=== PATIENT | male | born 1945 | race Caucasian/White ===

== ENCOUNTER → 2017-09-07 | Outpatient (CLI) | payer OTHER, MEDICARE | LOC: BHFA 15:30 | PROVIDERS: ATTEND Internal Medicine Cardiovascular Disease | DX: R60.9 Edema, unspecified (principal); I48.91 Unspecified atrial fibrillation ==

== ENCOUNTER 2018-07-17 07:23 | Inpatient (IN) | payer OTHER, MEDICARE ==
--- NOTE | 2018-07-05 15:50 | GHP ---
DATE OF ADMISSION: 07/17/2018 The patient will be a.m. admission for surgery on July 17, 2018. PROBLEM: Left knee arthritis. HISTORY OF PRESENT ILLNESS: The patient is a 73-year-old man admitted for a left total knee arthropl asty. He has a long history of progressive trouble with both knees. He lives in [place] part-time and [place] part-time. He has had Synvisc-One injections in his knees but it did not help. We have al so given him injections with minimal benefit. Currently, the left knee is more painful than the righ t. He complains of stiffness and soreness after sitting. He has trouble going down stairs. He comp lains that his left knee "locks up." He cannot take anti-inflammatory medication because he is antic oagulated on Eliquis for atrial fibrillation. PAST MEDICAL HISTORY: Atrial fibrillation. He had a pacemaker inserted in 2000. He has been cleare d by Dr. Scott. Dr. Scott stated that he could stop his Eliquis and did not require bridge the rapy. No history of coronary artery disease or stents, DVT, hepatitis, MRSA staph infection, sleep a pnea and bleeding problems. CURRENT MEDICATIONS: Eliquis 5 mg a day. Carvedilol 25 mg per day. Digoxin 0.25 mg per day. Lisin opril 2.5 mg per day. DRUG ALLERGIES: None. Metal allergy: None. Latex allergy: None. SOCIAL HISTORY: The patient is . He does not smoke cigarettes and occasionally drinks alcoho l. He is retired. FAMILY HISTORY: Unremarkable. PHYSICAL EXAMINATION: GENERAL APPEARANCE: He is an alert, healthy-appearing elderly man. Height 5 feet 11-1/2 inches. Weight 184 pounds. BMI 25.3. EYES: Conjunctivae and sclerae are clear. Pupil s are round and reactive. He has had bilateral cataract surgery with lens implants. MOUTH: Good or al hygiene. No loose teeth. CHEST: Clear. HEART: Regular rhythm. No murmurs. EXTREMITIES: Per tinent findings limited to his left knee. He has full extension 120 degrees of flexion. A small eff usion is present. Moderately course patellofemoral crepitation with active knee extension. His liga ments are stable. He has stasis dermatitis in the lower legs. Significant varicose veins in the rig ht leg. IMPRESSION ON ADMISSION: 1. Left knee degenerative arthritis, primarily involving the patellofemoral joint. He is prepared f or a left total knee arthroplasty. 2. Atrial fibrillation and a pacemaker. He is anticoagulated with Eliquis. 3. Chronic lower extremity venous insufficiency. PLAN: He will undergo a left total knee arthroplasty. The surgery has been described to him, includ ing the risks, complications, expectations, and recovery time. I have notified him that 10% to 15% o f people do not get a satisfactory result with a total knee replacement. I have stressed the importa nce of postoperative physical therapy. All his questions have been answered, and he consents to surg onofre. /[id number]/MODL
[~2018-07-17 07:23] MED LIST: POVIDONE-IODINE 20 ML in SODIUM CL IRRIG SOLUTION 500 ML IRR ONE; ROPIVACAINE 0.2% 80 MG, EPINEPHrine 0.2 MG, KETOROLAC TROMETHAMINE 30 MG in SYRINGE 0 ML IU ONE; TRANEXAMIC ACID 1,000 MG in NS 100 ML IV ONE; TRANEXAMIC ACID 3,000 MG in NS (SYRINGE) 50 ML IRR ONE
[2018-07-17] MEDS ORDERED: FAMOTIDINE 20 MG TAB PO ONE (07:32)
[2018-07-17] MEDS ORDERED: GABAPENTIN 300 MG CAP PO ONE (07:32)
[2018-07-17] MEDS ORDERED: ceFAZolin 2 GM/DEXTROSE 100 ML IV ONE (07:32)
[2018-07-17] MEDS ORDERED: ACETAMINOPHEN 325 MG TAB PO ONE (07:32)
[2018-07-17] MEDS ORDERED: DEXAMETHASONE 4 MG/ML VIAL IVP ONE (07:32)
[2018-07-17] MEDS ORDERED: ONDANSETRON 4 MG/2 ML VIAL IVP ONE (07:32)
[2018-07-17] MEDS ORDERED: LR 1,000 ML IV ONE (07:34)
[2018-07-17] MEDS ORDERED: ceFAZolin 1 GM/5 ML SYR ONE (08:36)
[2018-07-17] MEDS ORDERED: VANCOMYCIN 1 GM VIAL ONE (08:36)
[2018-07-17] MEDS ORDERED: TRANEXAMIC ACID 3,000 MG/50 ML BAG IRR ONE (08:36)
[2018-07-17] MEDS ORDERED: PROPOFOL/EMULSION 500 MG/50 ML BOTTLE IV ONE (08:37)
--- NOTE | 2018-07-17 08:53 | PDHPUP ---
History & Physical Update H&P update statement: This history and physical update is based on an assessment of the patient which was completed after admission or registration (within 24 hours), but prior to the surgery/procedure. H&P update: H&P reviewed & patient examined
[2018-07-17] MEDS ORDERED: BUPIVACAINE/DEXTROSE 7.5MG/ML 2 ML SPINAL AMP SP ONE (09:16)
[2018-07-17] MEDS ORDERED: LIDOCAINE 2% 5 ML SDV ONE (09:48)
[2018-07-17] MEDS ORDERED: GLYCOPYRROLATE 0.2 MG/1 ML VIAL ONE (09:49)
[2018-07-17] MEDS ORDERED: fentaNYL 100 MCG/2 ML INJ ONE (09:50)
[2018-07-17] MEDS ORDERED: ONDANSETRON 4 MG/2 ML VIAL ONE (09:52)
[2018-07-17] MEDS ORDERED: DEXAMETHASONE 4 MG/ML VIAL ONE ×2 (09:52)
[2018-07-17] MEDS ORDERED: fentaNYL 100 MCG/2 ML INJ IVP PRN (10:24)
[2018-07-17] MEDS ORDERED: METOCLOPRAMIDE 10 MG/2 ML VIAL IVP PRN ×2 (10:24→11:20)
[2018-07-17] MEDS ORDERED: MEPERIDINE 25 MG/0.5 ML AMP IVP PRN (10:24)
[2018-07-17] MEDS ORDERED: PROMETHAZINE HCL 25 MG/ML INJ IVP PRN ×2 (10:24→11:20)
[2018-07-17] MEDS ORDERED: PHENYLEPHRINE HCL 100 MCG/ML SYR IVP PRN (10:24)
[2018-07-17] MEDS ORDERED: HYDROmorphONE/DILAUDID 2 MG/ML INJ IVP PRN (10:24)
[2018-07-17] MEDS ORDERED: oxyCODONE IR 5 MG TAB PO PRN ×2 (10:24→11:20)
[2018-07-17] MEDS ORDERED: LR 500 ML IV PRN (10:24)
[2018-07-17] MEDS ORDERED: NALOXONE HCL 0.4 MG/ML INJ IVP PRN (10:24)
[2018-07-17] MEDS ORDERED: ACETAMINOPHEN 500 MG TAB PO PRN (10:24)
[2018-07-17] MEDS ORDERED: LABETALOL HCL 20 MG/4 ML INJ IVP PRN (10:24)
[2018-07-17] MEDS ORDERED: ALBUTEROL 3 ML DEYVIAL IH PRN (10:24)
--- NOTE | 2018-07-17 10:24 | PDANEPAE ---
ANE History of Present Illness left TKA for left knee pain ANE Past Medical History - Cardiovascular History Hx Hypertension: No Hx Arrhythmias: Yes Hx Chest Pain: No Hx Coronary Artery / Peripheral Vascular Disease: No Hx CHF / Valvular Disease: No Hx Palpitations: No Cardiovascular History Comment: SSS, Afib. +Pacemaker - Pulmonary History Hx COPD: No Hx Asthma/Reactive Airway Disease: No Hx Recent Upper Respiratory Infection: No Hx Oxygen in Use at Home: No Hx Sleep Apnea: No Sleep Apnea Screening Result - Last Documented: Positive - Neurologic History Hx Cerebrovascular Accident: No Hx Seizures: No Hx Dementia: No - Endocrine History Hx Diabetes: No Hypothyroid: No Hyperthyroid: No Obesity: no - Renal History Hx Renal Disorders: No - Liver History Hx Hepatic Disorders: No - Neurological & Psychiatric Hx Hx Neurological and Psychiatric Disorders: No - Cancer History Hx Cancer: No - Congenital Disorder History Hx Congenital Disorders: No - GI History GERD: no Hx Gastrointestinal Disorders: No - Other Health History Other Health History: none - Chronic Pain History Chronic Pain: Yes (right knee) - Surgical History Prior Surgeries: cataract. pacemaker ANE Review of Systems Review of systems is: negative Review of Systems: - Exercise capacity Exercise capacity: >=4 METS METS (RN): 4 METS - Pacemaker Pacemaker Type: Permanent Pacer/Defib Pacemaker Pododermatologist: [email or web address] Pacemaker Model: EVIA SR-T Pacemaker Mode: VVI-CLS Date Pacemaker Last Checked: 07/02/18 ANE Patient History - Allergies Allergies/Adverse Reactions: No Known Allergies Allergy (Verified 07/06/18 11:19) - Home Medications Home medications: home medication list seen and reviewed Home Medications: Apixaban [Eliquis] 5 mg PO BID 07/06/18 [Last Taken 07/10/18] Carvedilol [Coreg (*)] 50 mg PO BIDMEAL 07/06/18 [Last Taken 07/17/18] Digoxin [Lanoxin 250 mcg (RX)] 125 mcg PO BID 07/06/18 [Last Taken 07/17/18] Lisinopril [Zestril 2.5 mg (*)] 2.5 mg PO DAILY 07/06/18 [Last Taken 07/16/18] - NPO status NPO Status: no food or drink >8 hours NPO Since - Liquids (Date): 07/17/18 NPO Since - Liquids (Time): 06:00 NPO Since - Solids (Date): 07/16/18 NPO Since - Solids (Time): 18:00 - Anes Hx Anes Hx: no prior problems - Smoking Hx Smoking Status: Former smoker - Family Anes Hx Family Anes Hx: none Family Hx Anesthesia Complications: none ANE Labs/Vital Signs - Vital Signs Vital Signs: reviewed preoperatively; see RN documention for details Blood Pressure: 112/75 Heart Rate: 71 Respiratory Rate: 10 O2 Sat (%): 98 Height: 182.88 cm Weight: 83.461 kg ANE Physical Exam - Airway Neck exam: FROM Mallampati Score: Class 2 Mouth exam: normal dental/mouth exam - Pulmonary Pulmonary: no respiratory distress - Cardiovascular Cardiovascular: regular rate and rhythym - ASA Status ASA Status: II ANE Anesthesia Plan Anesthesia Plan: spinal Regional Anesthesia: continuous NB, adductor canal FNB
[2018-07-17] MEDS ORDERED: PROPOFOL 200 MG/20 ML VIAL ONE (10:25)
[2018-07-17] MEDS ORDERED: ROPIVACAINE HCL 150 MG/30 ML INJ ONE (11:02)
--- NOTE | 2018-07-17 11:06 | POSTOPPROG ---
Post Op Note Date of Operation: 07/17/18 Surgeon: Ciro Cervantes Coke Crane Operator: Bunny Anesthesiologist: Myriam Anesthesia: IV Sedation, Spinal Post-op Diagnosis: Left knee severe degenerative arthritis. Procedure: Left total knee arthroplasty Inf/Abcess present in the surg proc area at time of surgery?: No EBL: 50-100 (Adductor canal block in PACU with indwelling catheter.)
[2018-07-17] MEDS ORDERED: CYCLOBENZAPRINE 10 MG TAB PO PRN (11:20)
[2018-07-17] MEDS ORDERED: MAGNESIUM HYDROXIDE 30 ML UDCUP PO PRN (11:20)
[2018-07-17] MEDS ORDERED: POLYETHYLENE GLYCOL 3350 17 GM PKT PO PRN (11:20)
[2018-07-17] MEDS ORDERED: ONDANSETRON DISINTEGRATING 4 MG TAB PO PRN (11:20)
[2018-07-17] MEDS ORDERED: LACTULOSE 20 GM/30 ML UDCUP PO PRN (11:20)
[2018-07-17] MEDS ORDERED: ONDANSETRON 4 MG/2 ML VIAL IVP PRN (11:20)
[2018-07-17] MEDS ORDERED: DIPHENOXYLATE/ATROPINE LOMOTIL 1 TAB PO PRN (11:20)
[2018-07-17] MEDS ORDERED: BISACODYL 10 MG SUPP PR PRN (11:20)
[2018-07-17] MEDS ORDERED: traMADol 50 MG TAB PO PRN (11:20)
[2018-07-17] MEDS ORDERED: NS 500 ML IV PRN (11:20)
[2018-07-17] MEDS ORDERED: diphenhydrAMINE 25 MG CAP PO PRN (11:20)
[2018-07-17] MEDS ORDERED: TEMAZEPAM 15 MG CAP PO PRN (11:20)
[2018-07-17] MEDS ORDERED: PROMETHAZINE HCL 25 MG SUPPR PR PRN (11:20)
[2018-07-17] MEDS ORDERED: LR 1,000 ML IV SCH (11:30)
--- NOTE | 2018-07-17 12:00 | PDMN ---
Medical Necessity Medical necessity: [facility] S700 Total Knee Arthroplasty: L TKA, meets IP criteria for advanced age, SSS, Afib, +pacemaker, +ZAC
--- NOTE | 2018-07-17 12:29 | POSTANESTH ---
Post Anesthetic Evaluation Cardiovascular Status: Normal, Stable Respiratory Status: Normal, Stable Level of Consciousness/Mental Status: Can Participate in Eval Pain Control: Adequate, Prn Tx Ordered Nausea/Vomiting Control: Adequate, Prn Tx Ordered Complications Possibly Related to Anesthesia: None Noted
--- NOTE | 2018-07-17 12:52 | GOP ---
DATE OF OPERATION: 07/17/2018 SURGEON: Ciro Cervantes MD GARNETT MACHINE OPERATOR: Willie Marin and Zelalem Frausto. ANESTHESIA: Combination of Marcaine spinal, IV sedation, and adductor canal block. ANESTHESIOLOGIST: Michael Xavier MD. PREOPERATIVE DIAGNOSIS: Left knee severe degenerative arthritis, primarily involving the patellofemo ral joint. POSTOPERATIVE DIAGNOSIS: Left knee severe degenerative arthritis, primarily involving the patellofem oral joint. PROCEDURE PERFORMED: 07/17/2018, left total knee arthroplasty, cemented, Mckenna and Nephew Journey II , posterior stabilized. FINDINGS: DESCRIPTION OF PROCEDURE: The patient was given 2 g of IV Ancef preoperatively within 60 minutes of surgery. He received 1000 mg of IV tranexamic acid preoperatively. He was placed on the operating r oom table and given spinal anesthesia with Marcaine by Dr. Xavier. He was then placed supine and g iven IV sedation. A Bustos catheter was not used. He wore a KARLOS stocking and SCD on the nonoperative leg. His left lower extremity was prepped with ChloraPrep from the upper thigh tourniquet to the ti ps of the toes. It was draped free using sterile sheets, towels, stockinette and Ioban plastic drape . The lower leg was wrapped with compressive Coban. The leg was exsanguinated with elevation and a 6-inch compressive wrap, and the pneumatic tourniquet was inflated to 250 mmHg. The World Health Organization time-out was performed to verify the correct patient identity and the c orrect surgical side and site. The [place] time-out was also performed. The Keteraayo leg holding device was sterilely attached to the operating room table and used throughout the procedure to help position the knee. A straight midline incision was made centered on the patell a. Subcutaneous tissues were sharply divided, and hemostasis was obtained using electrocautery. A m edial subcutaneous flap was developed and the capsule and synovium were opened in a medial parapatell ar fashion. Extensive degenerative changes were present, primarily in the patellofemoral joint. He was eroded down to subchondral bone on the patella. His medial capsule and periosteum were lightly e levated off the rim of the medial tibial plateau all the way around to the posteromedial corner. The medial collateral ligament was very lightly released. In order to improve exposure, the patella was prepared first. The original thickness of the patella was measured. Peripheral osteophytes were removed. I cut a flat surface on the back of the patella. It was sized for a 38 mm round resurfacing component. I removed enough bone from the patella such that the remaining bone plus the thickness of the patellar component recreated the original thickness of the patella. The composite thickness was 26 mm. The intramedullary alignment guide system was used to set up the distal femoral cut. The distal femu r was cut in 5 degrees of valgus. Because of a slight preoperative flexion contracture, I made a +2 mm cut on the distal femur. The sizing jig was used to determine proper femoral sizing. I shifted t he size 7 jig anteriorly 1 mm in order to accommodate the size 7 without notching the anterior cortex . The 5-in-1 cutting block was applied, and the anterior and posterior condylar cuts and chamfer cut s were made. The final jig was used to remove the central portion of the distal femur to accommodate the posterior stabilized femoral component. I was careful to determine proper rotation by referjackson casillas off [place]'s line and other bony landmarks. Each cut was checked for accuracy. The femur was sized for a size 7 posterior stabilized component. Next, the tibia was prepared. The proximal tibial cut was made using the extramedullary alignment gu shailesh system. The cut was made in a few degrees of posterior slope. I was careful to achieve proper v arus valgus alignment and proper rotation. The posterior compartment was cleared of meniscal remnant s. Osteophytes were removed from the back of the femoral condyles. I checked the flexion and extens ion gaps and they were equal and rectangular. The tibia was sized for a size 6 component. With the trial components in place, I selected a 10 mm polyethylene posterior stabilized tibial insert. The adonis estrada came to full extension and flexed to 130 degrees. His collateral ligaments were stable and jesusita dimple in 90 degrees of flexion and full extension. The trial patellar button was applied, and patellar tracking was checked. Tracking was excellent without any digital pressure. 40 cc of the joint anesthetic cocktail were injected into the posterior capsule, the quadriceps tendo n and muscle areas and the subcutaneous tissues along the skin edges. The surfaces were prepared for cementing. They were carefully cleaned with the pulsating lavage irri gation and thoroughly dried. The CarboJet device was used to blow dry the cancellous surfaces. A do uble batch of high viscosity methylmethacrylate cement with 2 g of powdered vancomycin added was mixe d. While it was still in a doughy state, all 3 components were cemented in place. Excess cement was removed before it hardened. The 10 mm trial tibial insert was re-tried and was the proper thickness. The actual component was in serted and locked into place. The knee was thoroughly irrigated 1 final time with a dilute Betadine solution. The tourniquet was deflated. Total tourniquet time was 56 minutes. 50 cc of tranexamic acid solutio n was irrigated into the joint. The joint was packed with a lap and wrapped with a 6-inch Vaibhav bandag e and left in place for a couple of minutes. The vastus medialis portion of the extensor mechanism w as repaired with several interrupted [id number] #2 FiberWire sutures. The capsule and synovium were closed first with multiple interrupted [id number] 0 PDS sutures, followed by a running #2 b arbed Ethicon Stratafix PDO suture. The subcutaneous tissues were closed with a running 0 barbed Eth icon Stratafix Monoderm suture. The skin was closed with a running 3-0 barbed Ethicon Stratafix Bowman derm subcuticular suture. The skin was sealed with half-inch Steri-Strips. The wound was covered wi th a large sterile waterproof Mepilex dressing and a 6-inch compressive wrap. A long-leg KARLOS stockin g and SCD were applied followed by the cooling device. He wore a stocking and SCD on the opposite le g during the procedure. The Mediplex sacral dressing was also applied. I used a size 7 cemented Mckenna and Nephew Oxinium posterior stabilized femoral component, a size 6 ce mented tibial base plate, a 10 mm posterior stabilized tibial insert and a 38 mm cemented round all-p olyethylene resurfacing patellar component. The estimated blood loss following inflation of the tourniquet was about 100 cc. The sponge and needle count were correct on 2 occasions. He was awakened from anesthesia, transferred to his gurney, and taken to PACU in satisfactory conditi on. There were no recognized intraoperative complications. In the PACU, for additional postoperativ e pain control, Dr. Xavier performed an adductor canal block with an indwelling catheter. Willie Marin and Zelalem Frausto acted as surgical assistants. Their assistance was a medical necess ity for safe completion of the procedure. The patient does not have a primary care physician in [facility]. /[id number]/MODL
[2018-07-17] MEDS: ACETAMINOPHEN 325 MG TAB PO SCH ×2 (13:58→17:29)
[2018-07-17] MEDS: KETOROLAC 15 MG/1 ML SDV IVP SCH ×2 (13:59→17:30)
[2018-07-17] MEDS: CARVEDILOL 25 MG TAB PO SCH (17:30)
[2018-07-17] MEDS: ceFAZolin 2 GM/DEXTROSE 100 ML IV SCH (17:30)
[2018-07-17] MEDS: SENNOSIDES/DOCUSATE SODIUM TAB PO SCH (20:19)
[2018-07-17] MEDS: DIGOXIN 250 MCG TAB PO SCH (20:19)
[2018-07-17] MEDS: FAMOTIDINE 20 MG TAB PO SCH (20:19)
[2018-07-18] MEDS: ACETAMINOPHEN 325 MG TAB PO SCH ×3 (00:42→12:14)
[2018-07-18] MEDS: ceFAZolin 2 GM/DEXTROSE 100 ML IV SCH (00:42)
[2018-07-18] MEDS: KETOROLAC 15 MG/1 ML SDV IVP SCH ×2 (00:42→05:37)
[2018-07-18] MEDS: CARVEDILOL 25 MG TAB PO SCH (08:44)
[2018-07-18] MEDS: FAMOTIDINE 20 MG TAB PO SCH (08:45)
[2018-07-18] MEDS: DIGOXIN 250 MCG TAB PO SCH (08:45)
[2018-07-18] MEDS: SENNOSIDES/DOCUSATE SODIUM TAB PO SCH (08:46)
[2018-07-18] MEDS ORDERED: APIXABAN 5 MG TAB PO SCH (09:00)
[2018-07-18] MEDS ORDERED: FERROUS SULFATE 140 MG TAB.ER PO SCH (09:00)
[2018-07-18] MEDS ORDERED: LISINOPRIL 2.5 MG TAB PO SCH (09:00)
[2018-07-18] MEDS ORDERED: LIPID EMULSION 20% 100 ML IV PRN (09:40)
[2018-07-18 11:31] VITALS: BP 124/74
--- NOTE | 2018-07-18 13:27 | SOAPPROG ---
SOAP Progress Note Assessment/Plan: Assessment: Afebrile. Minimal pain. Has been up and walking and has done stairs. Dsg is dry. Films look good. Plan: Long alignment film. DC later today. 07/18/18 13:26 Objective: Vital Signs Temp Pulse Resp BP Pulse Ox 37.0 C 71 16 124/74 H 98 07/18/18 11:29 07/18/18 11:29 07/18/18 11:29 07/18/18 11:29 07/18/18 11:29 Laboratory Results 07/18/18 05:15 07/17/18 07/18/18 07/19/18 05:59 05:59 05:59 Intake Total 1418 Output Total 275 Balance 1143 ICD10 Worksheet Patient Problems: Problems Problem Status Onset Osteoarthritis of left knee Acute
--- NOTE | 2018-07-18 13:47 | GDS ---
ADMISSION DIAGNOSIS: Left knee arthritis. DISCHARGE DIAGNOSIS: Left knee arthritis. OPERATION PERFORMED: July 17, 2018, a left total knee arthroplasty. POSTOPERATIVE COMPLICATIONS: None. CONDITION ON DISCHARGE: Improved. DESCRIPTION OF HOSPITAL COURSE: The patient was admitted to the hospital on the morning of surgery. His admission CBC was normal. The same day, under a combination of Marcaine spinal, IV sedation, an d adductor canal block, he underwent a left total knee arthroplasty. Postoperatively, he was put bennett k on his preoperative Eliquis, which will serve as his DVT prophylaxis. On the first postoperative d ay, his hemoglobin and hematocrit were 11.4 and 34.5. He was seen by Physical Therapy and made rapid progress with walking, stairs, and knee range of motion. DISPOSITION: Patient discharged to his home. Continue Eliquis at home. He may progress to full tyler ghtbearing as tolerated. Next week, he will go to outpatient physical therapy at [facility]. KARLOS stockings for 1 week. He has prescriptions for Celebrex, tramadol, and oxycodone for pain contro l. I will see him back in the office on August 02, 2018. If there are any problems, he is to call me at the office. He does not have a primary care doctor. /[id number]/MODL
--- NOTE | 2018-07-18 14:21 | PDPAINCON ---
Pain Management Consultation Patient referred by : Billy - Subjective Pain at rest (/10): 1 Pain with activity (/10): 1 Pain is: low, well controlled Side effects include: No drowsy, No itchiness Activity: able to ambulate - Objective Technique: continuous peripheral nerve block Site: femoral Catheter site: clean, dry, intact, no erythema/edema/exudate Sensory and motor exam: consistent with block Vital signs: stable - Assessment/Plan Assessment/Plan: pain well-controlled, continue current mgmt Additional comments: Gave ropivicaine ropivicaine 0.5% 20 mL aspiration q 5 ml, negative for heme, pt tolerated well. Removed catheter, atraumatic tip intact.
--- NOTE | 2018-07-18 14:54 | ASMTCMCOM ---
CM Note CM Note Notes: Pt had planned OA of knee, resides with spouse. No CM d/c needs identified. PT rec home/outpatient. Date Signed: 07/18/2018 02:54 PM Electronically Signed By:JOHN Keller
--- NOTE | 2018-07-18 14:55 | ASMTLACE ---
LACE Length of stay for Answers: 2 days current admission Acuity / Level of Answers: Yes Care: Did the patient have an inpatient admission? Comorbidities - select Answers: Opioid dependence all that apply / Chronic pain Other Notes: AFib # of Emergency department Answers: 0 visits in the last 6 months Score: 10 Date Signed: 07/18/2018 02:54 PM Electronically Signed By:JOHN Keller
== END 2018-07-18 14:10 | disposition home or self-care (01) | DRG 470 ==
LOC: F3N 07:23
PROVIDERS: ADMIT Orthopaedic Surgery; ATTEND Orthopaedic Surgery
PROC: 0SRD0J9 Replacement of Left Knee Joint with Synthetic Substitute, Cemented, Open Approach (ICD-10-PCS; principal; 2018-07-17 09:00)
DX: M17.12 Unilateral primary osteoarthritis, left knee (principal); I42.9 Cardiomyopathy, unspecified; I48.91 Unspecified atrial fibrillation; I87.2 Venous insufficiency (chronic) (peripheral); Z95.0 Presence of cardiac pacemaker; Z79.01 Long term (current) use of anticoagulants
CPT/HCPCS: 97116-GP; 97161-GP; 97165-GO; 97535-GO; C1713; G8978-GP-CJ; G8979-GP-CI; G8980-GP-CI; G8987-GO-CI; G8988-GO-CI; G8989-GO-CI; J0171; J0690; J1100; J1885; J2405; J2704; J2795; J3010; J3370